=== PATIENT | male | born 1990 | race Caucasian/White ===

== ENCOUNTER 2016-11-04 01:18 | Emergency (ER) | payer BC, OTHER ==
--- NOTE | 2016-11-04 01:44 | Emergency Department Record ---
History of Present Illness - General Chief complaint: GI Bleed Stated complaint: BLOODY STOOLS Time Seen by Provider: 11/04/16 01:34 Source: Patient Mode of Arrival: Ambulatory Limitations: No limitations - History of Present Illness Initial comments: 25 yo male presents from work after seeing blood in his stools. he states he passed what felt like a normal bowel movement then looked and saw bloody toilet bowel water with normal feces that were typical in color. He reports a prior hemorrhoid but this felt different. No fevers. He did feel a little nauseated right after. No history of Gi abnormalities. No family history of IBD or colon cancer in his immediate family. MD complaint: Blood streaked stool Onset/Timin -: Hour(s) Severity scale (1-10): 3 Quality: Burning Consistency: Constant Worsens with: Other Context: Hemorrhoids Associated Symptoms: Abdominal pain, Nausea - Related Data Home Medications Medication Instructions Recorded Confirmed Last Taken No Home Med [NO HOME MEDS] 11/04/16 11/04/16 Unknown Allergies Allergy/AdvReac Type Severity Reaction Status Date / Time No Known Drug Allergies Allergy Verified 11/04/16 01:27 Travel Screening - Travel/Exposure Within Last 30 Days Have you traveled within the last 30 days?: No - Travel Symptoms Symptom Screening: None Review of Systems Constitutional: Denies: Chills, Fever, Malaise, Weakness Eyes: Denies: Eye discharge ENT: Denies: Congestion, Throat pain Respiratory: Denies: Cough Cardiovascular: Denies: Syncope Endocrine: Denies: Fatigue Gastrointestinal: Reports: Abdominal pain (initially, none currently), Nausea. Denies: Diarrhea, Vomiting Genitourinary: Denies: Frequency, Hematuria Musculoskeletal: Denies: Arthralgia, Back pain, Myalgia, Neck pain Skin: Denies: Bruising, Change in color, Rash Neurological: Denies: Headache Psychiatric: Denies: Anxiety Hematological/Lymphatic: Denies: Blood Clots, Easy bleeding, Easy bruising, Swollen glands Past Medical History - SOCIAL HISTORY Smoking Status: Current every day smoker - RESPIRATORY Hx Respiratory Disorders: No - CARDIOVASCULAR Hx Cardio Disorders: Yes Comment:: Pericarditis - NEURO Hx Neuro Disorders: No - GI Hx GI Disorders: Yes Comment:: inflamed hemorrhoid 2016 - Hx Genitourinary Disorders: No - ENDOCRINE Hx Endocrine Disorders: No - MUSCULOSKELETAL Hx Musculoskeletal Disorders: No - PSYCH Hx Psych Problems: No - HEMATOLOGY/ONCOLOGY Hx Hematology/Oncology Disorders: No Family Medical History Any Significant Family History?: Yes Hx Cancer: Grandparents Physical Exam - General General Appearance: Alert, Oriented x3, Cooperative, No acute distress Limitations: No limitations - Head Head exam: Normal inspection - Eye Eye exam: Normal appearance - ENT ENT exam: Normal exam Ear exam: Normal external inspection Nasal Exam: Normal inspection - Neck Neck exam: Normal inspection - GI/Abdominal GI/Abdominal exam: Soft. negative: Distended, Guarding, Rebound, Rigid, Tenderness - Rectal Rectal exam: Heme (-) stool, Normal inspection, Normal rectal tone, Tenderness, Other (brown to green stool on glove, heme negative). negative: Black stool, Bloody stool, Decreased rectal tone, Fecal impaction, Heme (+) stool, Hemorrhoids, Mass - exam: Deferred - Extremities Extremities exam: Normal inspection - Back Back exam: Reports: Normal inspection - Neurological Neurological exam: Alert - Psychiatric Psychiatric exam: Normal affect, Normal mood. negative: Anxious - Skin Skin exam: Dry, Intact, Normal color, Warm Course Vital Signs 11/04/16 01:23 Temperature 97.9 F Pulse Rate [ 69 Pulse Ox Probe] Respiratory 24 Rate Blood Pressure 134/86 [Left Arm] Pulse Ox 100 - Reevaluation(s) Reevaluation #1: The rectal examination was negative for blood with a positive control His vitals are in the normal range I recommended CBC. 11/04/16 01:46 Reevaluation #2: The CBC was reviewed No acute changes on the CBC with WBC of 8 and hgb of 15 I discussed these results I recommended [facility] If he has any return of symptoms he is to return I explained that if bleeding continues he may need a GI referral. 11/04/16 02:02 Medical Decision Making - Lab Data Result diagrams: 11/04/16 01:50 11/04/16 01:50 Disposition Disposition: Discharge Clinical Impression: GI bleed Disposition: Home, Self-Care Condition: (1) Good Instructions: Gastrointestinal Bleeding (ED) Additional Instructions: Call the number provided for a new family doctor Return if you have pain, fever, bleeding If the bleeding continues you will need additional test and follow up Add fiber or a gentle stool softener to prevent constipation or large hard stools Referrals: JAKOJO MONSIVAIS M.D. [MEDICAL DOCTOR] - Forms: Patient Portal Access Time of Disposition: 02:04
[2016-11-04 01:56] LABS: BASO % 0.2 % (0-6); EOS % 3.9 % (0-6); GRAN % 57.5 % (47-80); HEMATOCRIT 45.8 % (42.0-52.0); HEMOGLOBIN 15.4 gm/dl (14.0-18.0); LYMPH % 27.6 % (16-45); MEAN CELL VOLUME 87.2 fl (81-97); MEAN CORPUSCULAR HEMOGLOBIN 29.3 pg (27-33); MEAN CORPUSCULAR HGB CONC 33.6 g/dl (32-36); MEAN PLATELET VOLUME 10.2 fl (7.4-10.4); MONO % 10.8 % (0-9); PLATELET COUNT 253 K/uL (130-400); RED BLOOD COUNT 5.25 M/uL (4.40-5.70); RED CELL DISTRIBUTION WIDTH 12.8 % (11.5-14.5); WHITE BLOOD COUNT W/O DIFF 8.5 K/uL (4.2-12.2)
[2016-11-04 02:06] LABS: ANION GAP 8.9 (7-16); BLOOD UREA NITROGEN 19 mg/dL (9-20); CARBON DIOXIDE 25.1 mmol/L (22-30); CREATININE 0.9 mg/dL (0.66-1.25); EST GLOMERULAR FILTRATION RATE > 60 ml/min; GLUCOSE,RANDOM 99 mg/dL (70-110)
== END 2016-11-04 02:21 | disposition home or self-care (01) ==
LOC: ER 01:18
DX: K92.1 Melena (principal)
CPT/HCPCS: 80048; 85025; 99283

== ENCOUNTER 2017-07-13 01:49 | Emergency (ER) | payer BC ==
--- NOTE | 2017-07-13 02:07 | Emergency Department Record ---
History of Present Illness - General Chief Complaint: Hallucinations Stated Complaint: HALLUCINATING, AWAKE FOR 38 HRS Time Seen by Provider: 07/13/17 01:51 Source: Patient Mode of Arrival: Ambulatory Limitations: No limitations - History of Present Illness Initial Comments: 26 yo male presents from work with a request for remainder of shift off due to lack of sleep. Due to busy life circumstances and job demands he has not slept in about 38 hours. 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 He was having trouble concentrating and felt like he was starting to have dreams while awake. He denies and alcohol or drugs. He works 7 days a week. His last full day off was . He is not currently having any "dreams" or hallucinations. He is very alert and coherent with his history. MD Complaint: Other (Sleep deprived) -: Hour(s) Associated Psychiatric Symptoms: Auditory hallucinations History of same: Yes (Hx of same with severe sleep deprivation) Quality: Intermittent Improves With: None Worsens With: Other (lack of sleep) Treatments Prior to Arrival: None - [place] Coma Scale Eye Response: (4) Open spontaneously Motor Response: (6) Obeys commands Verbal Response: (5) Oriented [place] Total: 15 - Related Data Allergies Allergy/AdvReac Type Severity Reaction Status Date / Time No Known Drug Allergies Allergy Verified 11/04/16 01:27 Review of Systems Constitutional: Denies: Chills, Fever, Malaise, Weakness Eyes: Denies: Eye discharge, Eye pain, Photophobia, Vision change ENT: Denies: Congestion, Throat pain Respiratory: Denies: Cough, Dyspnea, Hemoptysis, Stridor, Wheezes Cardiovascular: Denies: Chest pain, Palpitations, Syncope Endocrine: Denies: Fatigue Gastrointestinal: Denies: Abdominal pain, Diarrhea, Nausea, Vomiting Genitourinary: Denies: Dysuria, Frequency, Hematuria Musculoskeletal: Denies: Arthralgia, Myalgia Skin: Denies: Bruising, Change in color, Rash Neurological: Denies: Abnormal gait, Confusion, Headache, Numbness, Paresthesias , Seizure, Tingling, Tremors, Vertigo, Weakness Psychiatric: Reports: As per HPI, Auditory hallucinations (none currently. he notes the feeling of dreaming while awake). Denies: Anxiety, Depression, Homicidal thoughts, Suicidal thoughts, Visual hallucinations Hematological/Lymphatic: Denies: Anemia, Easy bleeding, Easy bruising, Swollen glands Past Medical History - SOCIAL HISTORY Smoking Status: Current every day smoker - RESPIRATORY Hx Respiratory Disorders: No - CARDIOVASCULAR Hx Cardio Disorders: Yes Comment:: Pericarditis - NEURO Hx Neuro Disorders: No - GI Hx GI Disorders: Yes Comment:: inflamed hemorrhoid 2016 - Hx Genitourinary Disorders: No - ENDOCRINE Hx Endocrine Disorders: No - MUSCULOSKELETAL Hx Musculoskeletal Disorders: No - PSYCH Hx Psych Problems: No - HEMATOLOGY/ONCOLOGY Hx Hematology/Oncology Disorders: No Family Medical History Hx Cancer: Grandparents Physical Exam - General General Appearance: Alert, Oriented x3, Cooperative, No acute distress, Other ( Very alert, no confusion, clear thoughts and clear speech. Very coherent) Limitations: No limitations - Head Head exam: Atraumatic, Normocephalic, Normal inspection Head exam detail: negative: Abrasion, Contusion - Eye Eye exam: Normal appearance, PERRL, EOMI. negative: Conjunctival injection, Periorbital swelling, Scleral icterus - ENT ENT exam: Normal exam, Mucous membranes moist Ear exam: Normal external inspection Nasal Exam: Normal inspection Mouth exam: Normal external inspection - Neck Neck exam: Normal inspection - Respiratory Respiratory exam: Normal lung sounds bilaterally. negative: Respiratory distress - Cardiovascular Cardiovascular Exam: Regular rate, Normal rhythm, Normal heart sounds - Rectal Rectal exam: Deferred - exam: Deferred - Extremities Extremities exam: Normal inspection - Back Back exam: Reports: Normal inspection - Neurological Neurological exam: Alert, CN II-XII intact, Normal gait, Oriented X3. negative : Abnormal gait, Altered, Motor sensory deficit - Psychiatric Psychiatric exam: Normal affect, Normal mood. negative: Agitated, Anxious, Depressed, Flat affect, Homicidal ideation, Manic, Suicidal ideation - Skin Skin exam: Dry, Intact, Normal color, Warm Course Vital Signs 07/13/17 01:58 Temperature 97.7 F Pulse Rate [ 62 Pulse Ox Probe] Respiratory 20 Rate Blood Pressure 150/88 [Left Arm] Pulse Ox 97 - Reevaluation(s) Reevaluation #1: The patient's alertness and mentation are normal He shows no signs of impairment He is safe to drive home the 2 blocks from the hospital as he shows NO impairment or sleepiness. He is not confused and no current dreams are occurring He clinically is at baseline without any signs of even being sleep deprived. He will be provided a note for off remainder of the shift. 07/13/17 02:07 Disposition Disposition: Discharge Clinical Impression: Sleep deprivation Disposition: Home, Self-Care Condition: (1) Good Instructions: Fatigue (ED) Additional Instructions: Return if you have any return of symptoms Off the remainder of the shift You may return for your next shift after sleep without restrictions Time of Disposition: 02:09 Quality - Quality Measures Quality Measures: N/A - Blood Pressure Screening Does Patient Have Any of the Following: No Blood Pressure Classification: Pre-Hypertensive BP Reading Systolic Measurement: 150 Diastolic Measurement: 88 Screening for High Blood Pressure: < Pre-Hypertensive BP, F/U Documented > [ [id number]] Pre-Hypertensive Follow-up Interventions: Referral to alternative/primary care provider.
== END 2017-07-13 02:15 | disposition home or self-care (01) ==
LOC: ER 01:49
DX: Z72.820 Sleep deprivation (principal)
CPT/HCPCS: 99282